=== PATIENT | male | born 1970 | race Caucasian/White ===

== ENCOUNTER 2017-11-03 04:09 | Inpatient (IN) | payer MEDICARE, MEDICAID ==
[2017-11-03] MEDS ORDERED: ONDANSETRON HCL INJ/PF 4 MG/2 ML SDV IV ONE (04:46)
[2017-11-03] MEDS ORDERED: KETOROLAC TROMETHAMINE INJ/PF 30 MG/1 ML SDV IV ONE (04:46)
[2017-11-03] MEDS ORDERED: FENTANYL CITRATE INJ/PF 100 MCG/2 ML AMPUL IV ONE (04:46)
[2017-11-03 05:06] LABS: ABSOLUTE BASOPHILS # (AUTO) 0.1 10^3/uL (0.0-0.2); ABSOLUTE EOSINOPHILS # (AUTO) 0.2 10^3/uL (0.0-0.6); ABSOLUTE LYMPHOCYTES (AUTO) 1.7 10^3/uL (0.5-4.7); ABSOLUTE MONOCYTES (AUTO) 0.6 10^3/uL (0.1-1.4); ABSOLUTE NEUT (AUTO) 4.4 10^3/uL (1.7-8.2); BASOPHILS % (AUTO) 0.8 % (0-2); EOSINOPHILS % (AUTO) 3.2 % (0-6); HEMATOCRIT 40.5 % (37.9-51.0); HEMOGLOBIN 14.4 g/dL (13.5-17.0); LYMPHOCYTES % (AUTO) 24.6 % (13-45); MEAN CORPUSCULAR HEMOGLOBIN 30.8 pg (27.0-33.4); MEAN CORPUSCULAR HGB CONC 35.5 g/dL (32.0-36.0); MEAN CORPUSCULAR VOLUME 87 fl (80-97); MONOCYTES % (AUTO) 8.3 % (3-13); PLATELET COUNT 213 10^3/uL (150-450); RED BLOOD COUNT 4.68 10^6/uL (4.35-5.55); SEGMENTED NEUTROPHILS % (AUTO) 63.1 % (42-78); TOTAL CELLS COUNTED % (AUTO) 100 %
[2017-11-03 05:19] LABS: ALANINE AMINOTRANSFERASE 37 U/L (21-72); ALKALINE PHOSPHATASE 107 U/L (38-126); ANION GAP 14 (5-19); ASPARTATE AMINO TRANSFERASE 20 U/L (17-59); BILIRUBIN,DIRECT 0.2 mg/dL (0.0-0.4); BILIRUBIN,TOTAL 0.6 mg/dL (0.2-1.3); BLOOD UREA NITROGEN 20 mg/dL (7-20); CALCIUM 9.9 mg/dL (8.4-10.2); CARBON DIOXIDE 25 mmol/L (22-30); CHLORIDE 103 mmol/L (98-107); GLUCOSE 234 mg/dL (75-110); LIPASE 120.3 U/L (23-300); POTASSIUM 4.4 mmol/L (3.6-5.0); SODIUM 141.5 mmol/L (137-145); TOTAL PROTEIN 6.9 g/dL (6.3-8.2)
--- NOTE | 2017-11-03 06:56 | ER Document Report ---
ED General - General Mode of Arrival: Ambulatory Information source: Patient TRAVEL OUTSIDE OF THE [place] IN LAST 30 DAYS: No <GONZALO MEDEIROS - Last Filed: 11/03/17 06:50> <TRINO YIN - Last Filed: 11/03/17 07:44> - General Chief Complaint: Upper Abdominal Pain Stated Complaint: CHEST PAIN Time Seen by Provider: 11/03/17 04:29 Notes: Patient is a 46-year-old male presenting to the emergency department complaining of right upper quadrant abdominal pain. Patient stated pain all of a sudden started around 2 AM. Patient states since that time he has taken Tylenol and Motrin with no relief. Patient states he is nauseous but denies vomiting, diarrhea, fever, URI symptoms, chest pain, shortness of breath, dizziness. Patient states a few months ago he was diagnosed with gallstones by primary care, told to have a cholecystectomy but patient stated he could not afford the surgery and was going to address his right upper quadrant pain with diet. Patient stated he has not had pain since that episode. Patient denies any urinary symptoms or testicular pain. Past medical history of diabetes controlled with metformin. Allergies to morphine. (GONZALO MEDEIROS) - Related Data Allergies/Adverse Reactions: morphine Adverse Reaction (Verified 11/03/17 07:22) Tachycardia Past Medical History - General Information source: Patient - Social History Smoking Status: Current Every Day Smoker Patient has suicidal ideation: No Patient has homicidal ideation: No - Past Medical History Cardiac Medical History: Reports: Hx Hypertension Denies: Hx Coronary Artery Disease, Hx Heart Attack Pulmonary Medical History: Denies: Hx Asthma, Hx Bronchitis, Hx COPD, Hx Pneumonia Neurological Medical History: Denies: Hx Cerebrovascular Accident, Hx Seizures Renal/ Medical History: Denies: Hx Peritoneal Dialysis Musculoskeletal Medical History: Denies Hx Arthritis - Immunizations Hx Diphtheria, Pertussis, Tetanus Vaccination: Yes <GONZALO MEDEIROS - Last Filed: 11/03/17 06:50> - Social History Smoking Status: Unknown if Ever Smoked Family History: Reviewed & Not Pertinent <TRINO YIN - Last Filed: 11/03/17 07:44> Review of Systems - Review of Systems Constitutional: See HPI EENT: No symptoms reported Cardiovascular: See HPI Respiratory: See HPI Gastrointestinal: See HPI Genitourinary: See HPI Male Genitourinary: See HPI Musculoskeletal: See HPI Skin: No symptoms reported Hematologic/Lymphatic: No symptoms reported Neurological/Psychological: No symptoms reported <KIMBERLEYFILIPPOGONZALO - Last Filed: 11/03/17 06:50> Physical Exam <KIMBERLEYSHAR BARKLEYALIN - Last Filed: 11/03/17 06:50> <TRINO YIN - Last Filed: 11/03/17 07:44> - Vital signs Vitals: Temp Pulse Resp BP Pulse Ox 97.2 F 74 20 158/92 H 98 11/03/17 04:14 11/03/17 04:14 11/03/17 04:14 11/03/17 04:14 11/03/17 04:14 - Notes Notes: GENERAL: Alert, interacts well. No acute distress. HEAD: Normocephalic, atraumatic. EYES: Pupils equal, round, and reactive to light. Extraocular movements intact. ENT: Oral mucosa moist, tongue midline. NECK: Full range of motion. Supple. Trachea midline. LUNGS: Clear to auscultation bilaterally, no wheezes, rales, or rhonchi. No respiratory distress. HEART: Regular rate and rhythm. No murmur ABDOMEN: Pain upon palpation right upper quadrant positive Arreola sign. Nontender all other quadrants. Non-distended. Bowel sounds present in all 4 quadrants. EXTREMITIES: Moves all 4 extremities spontaneously. No edema, normal radial and dorsalis pedis pulses bilaterally. No cyanosis. BACK: no cervical, thoracic, lumbar midline tenderness. No saddle anesthesia, normal distal neurovascular exam. NEUROLOGICAL: Alert and oriented x3. Normal speech. [cranial nerves II through XII grossly intact]. PSYCH: Normal affect, normal mood. SKIN: Warm, dry, normal turgor. No rashes or lesions noted. (GONZALO MEDEIROS) Course - Laboratory Result Diagrams: 11/03/17 04:42 11/03/17 04:42 <GONZALO MEDEIROS - Last Filed: 11/03/17 06:50> - Laboratory Result Diagrams: 11/03/17 04:42 11/03/17 04:42 <TRINO YIN - Last Filed: 11/03/17 07:44> - Re-evaluation Re-evalutation: 11/03/17 07:33 Dr. Mayer is willing to do an ERCP on this patient today or tomorrow. Even though is not on-call for the emergency room. I gave him the patient's name. I then called Dr. Corado surgeon who will admit the patient and will keep the patient n.p.o. I assumed care of the patient at the bedside. 11/03/17 07:44 Dr. Corado is here to see the patient and admit him. (TRINO YIN) - Vital Signs Vital signs: Temp Pulse Resp BP Pulse Ox 97.2 F 74 17 158/79 H 98 11/03/17 04:14 11/03/17 04:14 11/03/17 07:15 11/03/17 07:15 11/03/17 07:15 - Laboratory Laboratory results interpreted by me: 11/03/17 11/03/17 04:42 06:38 Glucose 234 H Urine Glucose (UA) >=500 H Urine Ketones TRACE H Discharge <GONZALO MEDEIROS - Last Filed: 11/03/17 06:50> - Discharge Admitting Provider: Surgicalist Unit Admitted: Surgical Floor <TRINO YIN - Last Filed: 11/03/17 07:44> - Discharge Clinical Impression: Choledocholithiasis Condition: Stable Disposition: ADMITTED INPATIENT Referrals: KIRSTIN ATKINSON NP [Primary Care Provider] - Follow up as needed
[2017-11-03 07:04] LABS: APPEARANCE,URINE CLEAR; BILIRUBIN,URINE NEGATIVE (NEGATIVE); COLOR,URINE YELLOW; GLUCOSE, URINE >=500 mg/dL (NEGATIVE); KETONES,URINE TRACE mg/dL (NEGATIVE); LEUKOCYTE ESTERASE,URINE NEGATIVE (NEGATIVE); NITRITE,URINE NEGATIVE (NEGATIVE); PROTEIN,URINE NEGATIVE (NEGATIVE); UROBILINOGEN,URINE NEGATIVE mg/dL (<2.0)
[2017-11-03] MEDS ORDERED: NORMAL SALINE 1000 ML 1,000 ML IV ONE ×2 (07:09→07:32)
--- NOTE | 2017-11-03 07:14 | RADIOLOGY REPORT (SQ) ---
EXAM DESCRIPTION: US ABDOMEN LIMITED COMPLETED DATE/TME: 11/03/2017 04:45 CLINICAL HISTORY: ruq pain COMPARISON: None. TECHNIQUE: Real-time sonographic images of the right upper abdomen were obtained using a curved multihertz transducer. FINDINGS: Pancreas: The visualized portions of the pancreas are unremarkable. Vascular: The visualized portions of the aorta and IVC are unremarkable. Liver: The liver has normal contour and increased echogenicity. Hepatopedal flow in the portal vein. Findings confirmed with color and spectral Doppler imaging. The common bile duct measures 0.7 cm. Echogenic structures in the common bile duct. Gallbladder: Echogenic structures with posterior shadowing in the gallbladder lumen compatible with gallstones. Normal gallbladder wall thickness. No pericholecystic fluid identified. Right Kidney: The right kidney measures 12.5 cm in length. No hydronephrosis, solid renal mass, or shadowing calculi. IMPRESSION: 1. There is mild dilatation of the common bile duct with possible choledocholithiasis. Correlation with MRCP could provide additional characterization. 2. Cholelithiasis without other definite ultrasound evidence of acute cholecystitis. 3. Hepatic steatosis.
--- NOTE | 2017-11-03 07:25 | EKG REPORT ---
SEVERITY:- NORMAL ECG - SINUS RHYTHM : Confirmed by: Eriberto Peters MD 03-Nov-2017 07:24:43
--- NOTE | 2017-11-03 08:06 | PDOC H&P ---
History of Present Illness Admission Date/PCP: KIRSTIN ATKINSON NP Patient complains of: Right upper quadrant pain History of Present Illness: TEJ CRISOSTOMO is a 46 year old male with a one-day history of right upper quadrant pain that is sharp, stabbing, and unrelenting. The patient's pain is severe, 9 out of 10. His pain radiates to the right back and shoulder. The patient has experienced nausea, but no vomiting. Patient does have malaise and anorexia. The patient denies blurry vision, orthostasis, dizziness, melena, hematochezia, shortness of breath, fevers, chills. Nothing makes his pain better or worse. Past Medical History Cardiac Medical History: Reports: Hypertension Denies: Coronary Artery Disease, Myocardial Infarction Pulmonary Medical History: Denies: Asthma, Bronchitis, Chronic Obstructive Pulmonary Disease (COPD), Pneumonia Neurological Medical History: Denies: Seizures Endocrine Medical History: Reports: Diabetes Mellitus Type 2 Musculoskeltal Medical History: Denies: Arthritis Hematology: Denies: Anemia Past Surgical History Past Surgical History: Reports: Other - Back surgery (disc replacement) Social History Smoking Status: Current Every Day Smoker Frequency of Alcohol Use: Occasional Hx Recreational Drug Use: No Hx Prescription Drug Abuse: No Family History Family History: Reviewed & Not Pertinent Parental Family History Reviewed: Yes Children Family History Reviewed: Yes Sibling(s) Family History Reviewed.: Yes Medication/Allergy Allergies/Adverse Reactions: morphine Adverse Reaction (Verified 11/03/17 07:22) Tachycardia Review of Systems Constitutional: PRESENT: anorexia. ABSENT: chills, fatigue, fever(s), headache( s) Eyes: ABSENT: visual disturbances Ears: ABSENT: hearing changes Nose, Mouth, and Throat: ABSENT: sore throat Cardiovascular: ABSENT: dyspnea on exertion, palpitations Respiratory: ABSENT: cough, dyspnea Gastrointestinal: PRESENT: abdominal pain, nausea. ABSENT: vomiting Genitourinary: ABSENT: dysuria Musculoskeletal: PRESENT: back pain - Chronic Integumentary: ABSENT: pruritus, rash Neurological: ABSENT: abnormal gait, abnormal speech, confusion, convulsions, dizziness, memory loss Psychiatric: ABSENT: anxiety, depression Endocrine: ABSENT: cold intolerance, heat intolerance Hematologic/Lymphatic: ABSENT: easy bleeding, easy bruising Physical Exam Vital Signs: Temp Pulse Resp BP Pulse Ox 97.2 F 74 17 158/79 H 98 11/03/17 04:14 11/03/17 04:14 11/03/17 07:15 11/03/17 07:15 11/03/17 07:15 Intake & Output 11/02/17 11/03/17 11/04/17 06:59 06:59 06:59 Weight 98.6 kg General appearance: PRESENT: no acute distress Head exam: PRESENT: atraumatic, normocephalic Eye exam: PRESENT: EOMI, PERRLA. ABSENT: scleral icterus Mouth exam: PRESENT: moist, neck supple Teeth exam: ABSENT: poor dentation Neck exam: ABSENT: lymphadenopathy, meningismus, tenderness, thyromegaly, tracheal deviation Respiratory exam: PRESENT: unlabored. ABSENT: accessory muscle use, chest wall tenderness, rales, tachypnea, wheezes Cardiovascular exam: PRESENT: RRR Pulses: PRESENT: normal radial pulses Vascular exam: PRESENT: normal capillary refill. ABSENT: pallor GI/Abdominal exam: PRESENT: soft, tenderness - Right upper quadrant/ epigastrium. ABSENT: distended Rectal exam: PRESENT: deferred Extremities exam: ABSENT: clubbing, pedal edema Musculoskeletal exam: PRESENT: normal inspection. ABSENT: deformity Neurological exam: PRESENT: alert, awake, oriented to person, oriented to place , oriented to time, oriented to situation, CN II-XII grossly intact. ABSENT: motor sensory deficit Psychiatric exam: ABSENT: agitated, anxious, depressed Focused psych exam: ABSENT: delusional Skin exam: ABSENT: cyanosis, erythema, jaundice Results Laboratory Results: 11/03/17 04:42 11/03/17 04:42 11/03/17 11/03/17 11/03/17 04:42 04:42 06:38 WBC 7.0 RBC 4.68 Hgb 14.4 Hct 40.5 MCV 87 MCH 30.8 MCHC 35.5 RDW 13.0 Plt Count 213 Seg Neutrophils % 63.1 Lymphocytes % 24.6 Monocytes % 8.3 Eosinophils % 3.2 Basophils % 0.8 Absolute Neutrophils 4.4 Absolute Lymphocytes 1.7 Absolute Monocytes 0.6 Absolute Eosinophils 0.2 Absolute Basophils 0.1 Sodium 141.5 Potassium 4.4 Chloride 103 Carbon Dioxide 25 Anion Gap 14 BUN 20 Creatinine 0.73 Est GFR ( Amer) > 60 Est GFR (Non-Af Amer) > 60 Glucose 234 H Calcium 9.9 Total Bilirubin 0.6 AST 20 ALT 37 Alkaline Phosphatase 107 Total Protein 6.9 Albumin 4.0 Lipase 120.3 Urine Color YELLOW Urine Appearance CLEAR Urine pH 5.0 Ur Specific [place] 1.030 Urine Protein NEGATIVE Urine Glucose (UA) >=500 H Urine Ketones TRACE H Urine Blood NEGATIVE Urine Nitrite NEGATIVE Ur Leukocyte Esterase NEGATIVE Urine WBC (Auto) 1 Urine RBC (Auto) 1 Impressions: Abdomen Ultrasound 11/03/17 04:45 IMPRESSION: 1. There is mild dilatation of the common bile duct with possible choledocholithiasis. Correlation with MRCP could provide additional characterization. 2. Cholelithiasis without other definite ultrasound evidence of acute cholecystitis. 3. Hepatic steatosis. Status: Imported from PACS Assessment & Plan - Diagnosis (1) Choledocholithiasis Is this a current diagnosis for this admission?: Yes - Plan Summary Plan Summary: This is a 46-year-old male with choledocholithiasis found on ultrasound. The patient has right upper quadrant pain and nausea. The patient will require GI evaluation for his choledocholithiasis. He will require cholecystectomy once his common bile duct is clear. Plan for admission and intravenous antibiotics. Liver enzymes normal at present. Will consult Dr. Mayer for possible ERCP.
[2017-11-03] MEDS ORDERED: HYDROMORPHONE HCL INJ/PF 2 MG/ML AMPULE IV PRN (08:10)
[2017-11-03] MEDS: POTASSI CL 20 MEQ/1/2NS 1L 20 MEQ/1,000 ML RTUINJ IV PRN ×2 (09:11→22:45)
[2017-11-03] MEDS ORDERED: SUCCINYLCHOLINE CHLORIDE INJ 200 MG/10 ML VIAL ONE (11:26)
[2017-11-03] MEDS: PIPERACILLIN SODIUM/TAZOBACTAM 3.375 GM in NORMAL SALINE 100 ML IV SCH ×2 (11:55→20:13)
[2017-11-03] MEDS: HYDROMORPHONE HCL INJ/PF 2 MG/ML AMPULE IV PRN ×3 (12:53→20:14)
[2017-11-03] MEDS ORDERED: FENTANYL CITRATE INJ/PF 100 MCG/2 ML AMPUL ONE (15:47)
[2017-11-03] MEDS ORDERED: ONDANSETRON HCL INJ/PF 4 MG/2 ML SDV ONE (15:48)
[2017-11-03] MEDS ORDERED: PROPOFOL INJ 200 MG/20 ML VIAL IV ONE (15:48)
[2017-11-03] MEDS ORDERED: MIDAZOLAM 2 MG/2 ML INJ ONE (15:48)
[2017-11-03] MEDS ORDERED: DEXAMETHASONE SOD PHOSPHATE INJ 4 MG/1 ML VIAL ONE (17:03)
[2017-11-03] MEDS ORDERED: EPINEPHRINE INJ 1 MG/10 ML DISP.SYRIN ONE (17:18)
[2017-11-03] MEDS ORDERED: FENTANYL CITRATE INJ/PF 100 MCG/2 ML AMPUL IV PRN ×3 (19:00)
[2017-11-03] MEDS ORDERED: DIPHENHYDRAMINE HCL 50 MG/ML VIAL IV PRN (19:00)
[2017-11-03] MEDS ORDERED: PROMETHAZINE HCL INJ 25 MG/1 ML VIAL IV PRN ×2 (19:00)
[2017-11-03] MEDS ORDERED: ONDANSETRON HCL INJ/PF 4 MG/2 ML SDV IV PRN (19:00)
[2017-11-03] MEDS ORDERED: MEPERIDINE HCL/PF INJ 25 MG/1 ML DISP.SYRIN IV PRN (19:00)
--- NOTE | 2017-11-03 19:18 | PDOC CONSULTATION ---
Consultation Consult Date: 11/03/17 History of Present Illness Admission Date/PCP: 11/03/17 07:59 KIRSTIN ATKINSON NP History of Present Illness: TEJ CRISOSTOMO is a 46 year old male patient was admitted early on today with recurrent right upper quadrant pain. He has had 4 episodes of similar pain since March of this year but his last episode before now was 3 months ago. He tries to make himself vomit but he is not sure if this helps. The current episode started at 1:30 during the night and continue for many hours but it is better currently. He had an ultrasound today that showed gallstones with no evidence of cholecystitis. There is said to be mild dilation of the common bile duct with possible choledocholithiasis. His LFTs and lipase were normal Past Medical History Cardiac Medical History: Reports: Hypertension Denies: Coronary Artery Disease, Myocardial Infarction Pulmonary Medical History: Denies: Asthma, Bronchitis, Chronic Obstructive Pulmonary Disease (COPD), Pneumonia Neurological Medical History: Denies: Seizures Endocrine Medical History: Reports: Diabetes Mellitus Type 2 Musculoskeltal Medical History: Denies: Arthritis Hematology: Denies: Anemia Past Surgical History Past Surgical History: Reports: Other - Back surgery (disc replacement) Social History Smoking Status: Never Smoker Frequency of Alcohol Use: Occasional Hx Recreational Drug Use: No Drugs: None Hx Prescription Drug Abuse: No - Advance Directive Resuscitation Status: Full Code Family History Family History: Reviewed & Not Pertinent Parental Family History Reviewed: No Children Family History Reviewed: NA Sibling(s) Family History Reviewed.: NA Medication/Allergy Allergies/Adverse Reactions: morphine Adverse Reaction (Verified 11/03/17 07:22) Tachycardia Review of Systems All systems: reviewed and no additional remarkable complaints except as stated Physical Exam Vital Signs: Temp Pulse Resp BP Pulse Ox 97.6 F 50 L 18 144/74 H 99 11/03/17 15:29 11/03/17 15:29 11/03/17 15:29 11/03/17 15:29 11/03/17 15:29 Intake & Output 11/02/17 11/03/17 11/04/17 06:59 06:59 06:59 Intake Total 2100 Output Total 1235 Balance 865 Exam: General: Patient is alert and looks well. HEENT: There is no pallor or jaundice. PERRLA. Oropharynx normal Respiratory: No chest deformity. No respiratory distress. Chest wall palpitation was unremarkable. Breath sounds were normal Cardiovascular: Heart sounds 1 and 2 normal with no murmurs. Abdominal: Not distended. Soft and nontender. Liver and spleen not palpable. No ascites demonstrated. Bowel sounds active. Rectal examination was deferred. Extremities: No edema Neurological: Alert and oriented x4. Grossly nonfocal. Normal speech Skin: No significant rash Psychological: Normal affect Results Impressions: Abdomen Ultrasound 11/03/17 04:45 IMPRESSION: 1. There is mild dilatation of the common bile duct with possible choledocholithiasis. Correlation with MRCP could provide additional characterization. 2. Cholelithiasis without other definite ultrasound evidence of acute cholecystitis. 3. Hepatic steatosis. Assessment & Plan - Diagnosis (1) Abnormal finding of biliary tract Is this a current diagnosis for this admission?: Yes Plan: He he has had recurrent right upper quadrant pain for many months and an ultrasound that suggest choledocholithiasis. He has normal lipase and LFTs. The need for an ERCP was explained to the patient. He will be undergoing a cholecystectomy thereafter (2) Gallstones Is this a current diagnosis for this admission?: Yes (3) Right upper quadrant abdominal pain Is this a current diagnosis for this admission?: Yes
--- NOTE | 2017-11-03 19:20 | Operative Report ---
Operative Report DATE OF SURGERY: 11/03/17 Operative Report: Pre-op diagnosis: Possible choledocholithiasis on ultrasound Post-op diagnosis: 1. Common bile duct sludge 2. Antral ulcers Surgery: ERCP with sphincterotomy and balloon sludge extraction and biopsy Medications: As per anesthesia Tissue removed: Antral biopsy Procedure: After informed consent obtained from patient, the throat was sprayed with Hurricane and conscious sedation was achieved. The ERCP endoscope was then inserted into the esophagus blindly and advanced into the stomach. The duodenum was entered and the ampulla was identified. Using the triple-lumen sphincterotomy catheter the common bile duct was freely cannulated. A cholangiogram was obtained which showed possible filling defect in the distal common bile duct. The common bile duct and intrahepatic ducts did not appear dilated. A good sized sphincterotomy was then performed using the endocut mode. The catheter was removed over the guidewire before a 9-12 mm balloon catheter was inserted. The balloon was inflated to 12 mm in the proximal common bile duct and pulled down the duct. Some sludge was extracted. The duct was swept one more time. A balloon occlusion cholangiogram was normal. The pancreatic duct was intentionally not cannulated. Patient tolerated procedure well. Findings Common bile duct: This was of normal size. Small amount of sludge was extracted with the balloon. He had a small ampulla Intrahepatic ducts: Normal Pancreatic duct: Not cannulated Stomach: He had 2 small ulcers with some erythema in the gastric antrum. Biopsy was taken Plan: Proceed with cholecystectomy. Use a PPI for 2 months OPERATION: .
[2017-11-04] MEDS: PIPERACILLIN SODIUM/TAZOBACTAM 3.375 GM in NORMAL SALINE 100 ML IV SCH ×5 (00:23→23:30)
[2017-11-04] MEDS: HYDROMORPHONE HCL INJ/PF 2 MG/ML AMPULE IV PRN ×10 (00:42→23:25)
[2017-11-04] MEDS: ONDANSETRON HCL INJ/PF 4 MG/2 ML SDV IV PRN ×5 (00:42→18:34)
[2017-11-04 05:27] LABS: ABSOLUTE LYMPHOCYTES (AUTO) 0.4 10^3/uL (0.5-4.7); ABSOLUTE MONOCYTES (AUTO) 0.3 10^3/uL (0.1-1.4); ABSOLUTE NEUT (AUTO) 7.7 10^3/uL (1.7-8.2); BASOPHILS % (AUTO) 0.3 % (0-2); EOSINOPHILS % (AUTO) 0.3 % (0-6); HEMATOCRIT 39.6 % (37.9-51.0); HEMOGLOBIN 14.1 g/dL (13.5-17.0); LYMPHOCYTES % (AUTO) 5.2 % (13-45); MEAN CORPUSCULAR HEMOGLOBIN 30.7 pg (27.0-33.4); MEAN CORPUSCULAR HGB CONC 35.5 g/dL (32.0-36.0); MEAN CORPUSCULAR VOLUME 86 fl (80-97); MONOCYTES % (AUTO) 3.3 % (3-13); PLATELET COUNT 172 10^3/uL (150-450); RED BLOOD COUNT 4.59 10^6/uL (4.35-5.55); RED CELL DISTRIBUTION WIDTH 12.8 % (11.5-14.0); SEGMENTED NEUTROPHILS % (AUTO) 90.9 % (42-78); TOTAL CELLS COUNTED % (AUTO) 100 %; WHITE BLOOD COUNT 8.5 10^3/uL (4.0-10.5)
[2017-11-04 05:39] LABS: ALANINE AMINOTRANSFERASE 201 U/L (21-72); ALBUMIN 3.8 g/dL (3.5-5.0); ALKALINE PHOSPHATASE 103 U/L (38-126); ANION GAP 9 (5-19); ASPARTATE AMINO TRANSFERASE 241 U/L (17-59); BILIRUBIN,DIRECT 1.4 mg/dL (0.0-0.4); BILIRUBIN,TOTAL 2.3 mg/dL (0.2-1.3); BLOOD UREA NITROGEN 14 mg/dL (7-20); CALCIUM 8.9 mg/dL (8.4-10.2); CARBON DIOXIDE 24 mmol/L (22-30); CHLORIDE 103 mmol/L (98-107); GLUCOSE 230 mg/dL (75-110); POTASSIUM 4.5 mmol/L (3.6-5.0); SODIUM 136.2 mmol/L (137-145); TOTAL PROTEIN 6.7 g/dL (6.3-8.2)
[2017-11-04 06:40] LABS: LIPASE 12776.4 U/L (23-300)
[2017-11-04] MEDS ORDERED: PROMETHAZINE HCL INJ 25 MG/1 ML VIAL ONE (07:30)
[2017-11-04] MEDS: PROMETHAZINE HCL INJ 25 MG/1 ML VIAL IV PRN ×2 (07:30→14:42)
--- NOTE | 2017-11-04 08:34 | RADIOLOGY REPORT (SQ) ---
EXAM DESCRIPTION: NO CHG FLUORO; ENDO CATH/BILIARY DUCT COMPLETED DATE/TIME: 11/03/2017 7:35 pm REASON FOR STUDY: ERCP COMPARISON: None. FLUOROSCOPY TIME: 2.5 minutes 6 images saved to PACS. TECHNIQUE: Intra-operative images acquired during surgical procedure to evaluate progress. NUMBER OF IMAGES: 6 LIMITATIONS: None. FINDINGS: Selected images from ERCP performed in the operating room. Endoscope tip overlies 2nd por tion of duodenum. There is opacification of the bile ducts. No fixed filling defect or extravasatio n. IMPRESSION: IMAGE(S) OBTAINED DURING PROCEDURE. COMMENT: Quality ID [id number]: Final reports for procedures using fluoroscopy that document radiation exp osure indices, or exposure time and number of fluorographic images (if radiation exposure indices are not available) Please consult full operative report of the attending physician for description of the procedure. TECHNICAL DOCUMENTATION: JOB ID: [id number] [employer]- All Rights Reserved Reading location - IP/workstation name: [facility]
--- NOTE | 2017-11-04 08:34 | RADIOLOGY REPORT (SQ) ---
EXAM DESCRIPTION: NO CHG FLUORO; ENDO CATH/BILIARY DUCT COMPLETED DATE/TIME: 11/03/2017 7:35 pm REASON FOR STUDY: ERCP COMPARISON: None. FLUOROSCOPY TIME: 2.5 minutes 6 images saved to PACS. TECHNIQUE: Intra-operative images acquired during surgical procedure to evaluate progress. NUMBER OF IMAGES: 6 LIMITATIONS: None. FINDINGS: Selected images from ERCP performed in the operating room. Endoscope tip overlies 2nd por tion of duodenum. There is opacification of the bile ducts. No fixed filling defect or extravasatio n. IMPRESSION: IMAGE(S) OBTAINED DURING PROCEDURE. COMMENT: Quality ID [id number]: Final reports for procedures using fluoroscopy that document radiation exp osure indices, or exposure time and number of fluorographic images (if radiation exposure indices are not available) Please consult full operative report of the attending physician for description of the procedure. TECHNICAL DOCUMENTATION: JOB ID: [id number] [employer]- All Rights Reserved Reading location - IP/workstation name: [facility]
[2017-11-04] MEDS: LANSOPRAZOLE 30 MG TAB.RAP.DR PO SCH (09:07)
[2017-11-04] MEDS: NORMAL SALINE 1000 ML 1,000 ML IV PRN ×3 (09:30→23:24)
--- NOTE | 2017-11-04 11:21 | PDOC PROGRESS REPORT ---
Subjective Progress Note for:: 11/04/17 Subjective:: Epigastric pains with nausea/vomiting Reason For Visit: COMMON BILE DUCT CALCULUS Physical Exam Vital Signs: Temp Pulse Resp BP Pulse Ox 97.8 F 82 22 H 180/69 H 99 11/04/17 07:34 11/04/17 07:34 11/04/17 07:34 11/04/17 07:34 11/04/17 07:34 Intake & Output 11/03/17 11/04/17 11/05/17 06:59 06:59 06:59 Intake Total 4200 100 Output Total 1235 Balance 2965 100 Weight 98.6 kg General appearance: PRESENT: severe distress GI/Abdominal exam: PRESENT: soft, tenderness - epigastric area Results Laboratory Results: 11/04/17 04:36 11/04/17 04:36 11/04/17 11/04/17 04:36 04:36 WBC 8.5 RBC 4.59 Hgb 14.1 Hct 39.6 MCV 86 MCH 30.7 MCHC 35.5 RDW 12.8 Plt Count 172 Seg Neutrophils % 90.9 H Lymphocytes % 5.2 L Monocytes % 3.3 Eosinophils % 0.3 Basophils % 0.3 Absolute Neutrophils 7.7 Absolute Lymphocytes 0.4 L Absolute Monocytes 0.3 Absolute Eosinophils 0.0 Absolute Basophils 0.0 Sodium 136.2 L Potassium 4.5 Chloride 103 Carbon Dioxide 24 Anion Gap 9 BUN 14 Creatinine 0.63 Est GFR ( Amer) > 60 Est GFR (Non-Af Amer) > 60 Glucose 230 H Calcium 8.9 Total Bilirubin 2.3 H AST 241 H ALT 201 H Alkaline Phosphatase 103 Total Protein 6.7 Albumin 3.8 Lipase 40931.4 H Impressions: Catheter Placement 11/03/17 00:00 IMPRESSION: IMAGE(S) OBTAINED DURING PROCEDURE. Fluoroscopy 11/03/17 00:00 IMPRESSION: IMAGE(S) OBTAINED DURING PROCEDURE. Abdomen Ultrasound 11/03/17 04:45 IMPRESSION: 1. There is mild dilatation of the common bile duct with possible choledocholithiasis. Correlation with MRCP could provide additional characterization. 2. Cholelithiasis without other definite ultrasound evidence of acute cholecystitis. 3. Hepatic steatosis. Assessment & Plan - Diagnosis (1) post ERCP pancreatitis Is this a current diagnosis for this admission?: Yes - Time Time Spent with patient: 15-24 minutes - Inpatient Certification Medical Necessity: Need For IV Fluids, Need for Pain Control, Need for IV Antibiotics, Need for Surgery - Plan Summary Plan Summary: Hold Perico gilbert today Monitor labs serially Will inform Dr Mayer of lab abnormalities Keep NPO and Hydrate Continue IV antibiotics
[2017-11-04] MEDS ORDERED: NORMAL SALINE 1000 ML 1,000 ML IV ONE (14:00)
[2017-11-05] MEDS: HYDROMORPHONE HCL INJ/PF 2 MG/ML AMPULE IV PRN ×8 (07:30→21:57)
[2017-11-05] MEDS: ONDANSETRON HCL INJ/PF 4 MG/2 ML SDV IV PRN ×2 (08:00→21:59)
[2017-11-05] MEDS: PROMETHAZINE HCL INJ 25 MG/1 ML VIAL IV PRN ×2 (08:25→15:12)
[2017-11-05 09:21] LABS: ABSOLUTE EOSINOPHILS # (AUTO) 0.1 10^3/uL (0.0-0.6); ABSOLUTE LYMPHOCYTES (AUTO) 1.3 10^3/uL (0.5-4.7); ABSOLUTE MONOCYTES (AUTO) 0.5 10^3/uL (0.1-1.4); ABSOLUTE NEUT (AUTO) 6.5 10^3/uL (1.7-8.2); BASOPHILS % (AUTO) 0.3 % (0-2); EOSINOPHILS % (AUTO) 0.8 % (0-6); HEMATOCRIT 41.2 % (37.9-51.0); HEMOGLOBIN 14.4 g/dL (13.5-17.0); MEAN CORPUSCULAR HEMOGLOBIN 30.4 pg (27.0-33.4); MEAN CORPUSCULAR HGB CONC 35.1 g/dL (32.0-36.0); MEAN CORPUSCULAR VOLUME 87 fl (80-97); MONOCYTES % (AUTO) 6.5 % (3-13); PLATELET COUNT 180 10^3/uL (150-450); RED BLOOD COUNT 4.75 10^6/uL (4.35-5.55); RED CELL DISTRIBUTION WIDTH 12.7 % (11.5-14.0); SEGMENTED NEUTROPHILS % (AUTO) 77.4 % (42-78); TOTAL CELLS COUNTED % (AUTO) 100 %; WHITE BLOOD COUNT 8.3 10^3/uL (4.0-10.5)
[2017-11-05 09:29] LABS: ALANINE AMINOTRANSFERASE 109 U/L (21-72); ALBUMIN 3.4 g/dL (3.5-5.0); ALKALINE PHOSPHATASE 81 U/L (38-126); ANION GAP 9 (5-19); ASPARTATE AMINO TRANSFERASE 45 U/L (17-59); BILIRUBIN,DIRECT 0.4 mg/dL (0.0-0.4); BILIRUBIN,TOTAL 1.1 mg/dL (0.2-1.3); BLOOD UREA NITROGEN 10 mg/dL (7-20); CALCIUM 8.6 mg/dL (8.4-10.2); CARBON DIOXIDE 26 mmol/L (22-30); CHLORIDE 106 mmol/L (98-107); GLUCOSE 120 mg/dL (75-110); POTASSIUM 3.8 mmol/L (3.6-5.0); SODIUM 140.7 mmol/L (137-145); TOTAL PROTEIN 6.2 g/dL (6.3-8.2)
[2017-11-05] MEDS: PIPERACILLIN SODIUM/TAZOBACTAM 3.375 GM in NORMAL SALINE 100 ML IV SCH ×4 (11:14→17:55)
[2017-11-05] MEDS: NORMAL SALINE 1000 ML 1,000 ML IV PRN ×2 (11:14→17:57)
[2017-11-05] MEDS: LANSOPRAZOLE 30 MG TAB.RAP.DR PO SCH (11:15)
[2017-11-06] MEDS: PIPERACILLIN SODIUM/TAZOBACTAM 3.375 GM in NORMAL SALINE 100 ML IV SCH ×5 (00:27→23:45)
[2017-11-06] MEDS: HYDROMORPHONE HCL INJ/PF 2 MG/ML AMPULE IV PRN ×3 (02:41→21:09)
[2017-11-06] MEDS: NORMAL SALINE 1000 ML 1,000 ML IV PRN ×2 (02:42→10:46)
[2017-11-06 05:37] LABS: ALANINE AMINOTRANSFERASE 73 U/L (21-72); ALBUMIN 3.5 g/dL (3.5-5.0); ALKALINE PHOSPHATASE 75 U/L (38-126); ASPARTATE AMINO TRANSFERASE 22 U/L (17-59); BILIRUBIN,DIRECT 0.4 mg/dL (0.0-0.4); BILIRUBIN,TOTAL 1.2 mg/dL (0.2-1.3); LIPASE 263.7 U/L (23-300)
[2017-11-06] MEDS: LANSOPRAZOLE 30 MG TAB.RAP.DR PO SCH ×2 (08:25→08:27)
[2017-11-06] MEDS ORDERED: BUPIVACAINE HCL 0.25% /EPINEPHRINE INJ/PF 30 ML SDV ONE (13:00)
[2017-11-06] MEDS ORDERED: HYDROMORPHONE HCL INJ/PF 2 MG/ML AMPULE ONE (13:07)
[2017-11-06] MEDS ORDERED: FENTANYL CITRATE INJ/PF 250 MCG/5 ML AMPULE ONE (13:07)
[2017-11-06] MEDS ORDERED: ACETAMINOPHEN 1,000 MG/100 ML RTUPB IV ONE (13:08)
[2017-11-06] MEDS ORDERED: PROPOFOL INJ 200 MG/20 ML VIAL IV ONE (13:08)
[2017-11-06] MEDS ORDERED: MIDAZOLAM 2 MG/2 ML INJ ONE (13:08)
[2017-11-06] MEDS ORDERED: MEPERIDINE HCL/PF INJ 25 MG/1 ML DISP.SYRIN IV PRN (13:37)
[2017-11-06] MEDS ORDERED: ONDANSETRON HCL INJ/PF 4 MG/2 ML SDV IV PRN (13:37)
[2017-11-06] MEDS ORDERED: FENTANYL CITRATE INJ/PF 100 MCG/2 ML AMPUL IV PRN ×3 (13:37)
[2017-11-06] MEDS ORDERED: PROMETHAZINE HCL INJ 25 MG/1 ML VIAL IV PRN (13:37)
[2017-11-06] MEDS ORDERED: DIPHENHYDRAMINE HCL 50 MG/ML VIAL IV PRN (13:37)
[2017-11-06] MEDS ORDERED: DEXAMETHASONE SOD PHOSPHATE INJ 4 MG/1 ML VIAL ONE (14:48)
[2017-11-06] MEDS ORDERED: ROCURONIUM BROMIDE INJ 50 MG/5 ML VIAL IV ONE (14:48)
[2017-11-06] MEDS ORDERED: SUCCINYLCHOLINE CHLORIDE INJ 200 MG/10 ML VIAL ONE (14:48)
[2017-11-06] MEDS ORDERED: GLYCOPYRROLATE 1 MG/5 ML SYRINGE ONE (14:48)
[2017-11-06] MEDS ORDERED: ONDANSETRON HCL INJ/PF 4 MG/2 ML SDV ONE (14:48)
[2017-11-06] MEDS ORDERED: NORMAL SALINE 1000 ML 1,000 ML IV PRN (15:47)
--- NOTE | 2017-11-06 19:30 | OPERATIVE REPORT E ---
Operative Report NAME: TEJ CRISOSTOMO : 1970 AGE: 46Y DATE OF SURGERY: 11/06/2017 ROOM: 313 PREOPERATIVE DIAGNOSIS: COMMON BILE DUCT STONES WITH POST ERCP PANCREATITIS. POSTOPERATIVE DIAGNOSIS: COMMON BILE DUCT STONES WITH POST ERCP PANCREATITIS. OPERATION: Laparoscopic cholecystectomy. SURGEON: SEDRICK CHANDLER M.D. ANESTHESIA: General. INDICATIONS: This is a 46-year-old male who came in with abdominal pain, with stones in the common bile duct on ultrasound. He was admitted on 11/03/2017. On 11/04/2017, underwent ERCP by Dr. Mayer. Postoperatively, however, developed more severe epigastric pains with elevated lipase. All his enzymes gradually decreased and his pains also decreased. Today, he underwent laparoscopic cholecystectomy. PROCEDURE: Patient was placed in supine position and the abdomen prepped and draped in the usual sterile fashion. Appropriate timeout was then called. Next, an infraumbilical incision was made and a Norm trocar inserted through the divided fascia, and CO2 insufflated to a pressure of 50 mmHg through the trocar. Three other trocars were placed, a 12-mm in the subxiphoid and two 5-mm in the right upper quadrant, under direct vision. Gallbladder was then identified and subsequently grasped. Some adhesions were bluntly lysed and also use of cautery. The cystic duct was then identified and noted to be somewhat dilated. Cystic artery also identified. After angle of safety was noted, the cystic duct was then clipped with Hemoclips. However, the clips were not long enough to completely clip the duct. Because of this, another clip was placed further, close to the gallbladder, and subsequently divided between this clip and the rest of the proximal clips. The cystic duct was then completely incised. At this time, a PDS loop was then tied around the cystic duct and a second PDS loop was then tied over. Next, the cystic artery was then clipped with Hemoclips and then divided with use of scissors in between the clips The gallbladder was partially opened and extruded a couple of stones that were then retrieved with stone graspers. Gallbladder was then taken off the liver bed with the use of right angle cautery. The gallbladder was then completely removed off the liver bed. It was then placed in an Endo bag and pulled out through the umbilical port. Examination of the gallbladder bed area was then further performed and noted to have no evidence of active bleeding. A couple of stones were then identified and they were then retrieved. The area was further irrigated and no further bleeding noted. Following this, the trocars were removed and CO2 allowed to come out through the trocar sites. The infraumbilical fascial defect was then closed with a [id number] suture using 0 Vicryl, and all skin incisions closed with running subcuticular 4-0 Vicryl undyed. Marcaine was injected in the fascial area, as well as the subcutaneous area. Also, about 10 mL of Marcaine were injected around the area of the liver bed prior to removal of all the trocar sites. Patient tolerated procedure well. Needle, instrument and sponge counts were all correct. Estimated blood loss about 15 mL. Patient tolerated procedure well and brought to the recovery room in satisfactory condition. DICTATING PHYSICIAN: SEDRICK CHANDLER M.D. [id number] PHY#: [id number] ID: [id number] JOB#: [id number] ACCT: [id number] cc:SEDRICK CHANDLER M.D. > MTDD
[2017-11-07] MEDS: HYDROMORPHONE HCL INJ/PF 2 MG/ML AMPULE IV PRN ×4 (04:20→14:53)
[2017-11-07] MEDS: PIPERACILLIN SODIUM/TAZOBACTAM 3.375 GM in NORMAL SALINE 100 ML IV SCH ×3 (05:56→17:38)
[2017-11-07] MEDS: LANSOPRAZOLE 30 MG TAB.RAP.DR PO SCH (08:21)
[2017-11-07 15:32] VITALS: BP 126/67
[2017-11-07] MEDS ORDERED: OXYCODONE-ACETAMINOPHEN 5-325 MG TABLET PO PRN (18:15)
--- NOTE | 2017-11-07 20:30 | DISCHARGE SUMMARY E ---
Discharge Summary NAME: TEJ CRISOSTOMO : 1970 AGE: 46Y ADMITTED: 11/03/2017 DISCHARGED: 11/07/2017 FINAL DIAGNOSIS: Common bile duct stone with postoperative endoscopic retrograde cholangiopancreatography, pancreatitis, and elevated liver function tests. PROCEDURES: 1. ERCP, Dr. Mayer on 11/04/17. 2. Laparoscopic cholecystectomy on 11/06/17, Dr. Chandler. HOSPITAL COURSE: This is a 46-year-old male with abdominal pains and admitted on 11/03/17 for common bile duct stone. The patient underwent ERCP on 11/04/[address] Mayer, but developed elevated lipase and LFTs with increasing epigastric pains. Clinically and laboratory charl[place] all his symptoms and lab came down to practically normal on 11/06/17. He underwent laparoscopic cholecystectomy on 11/06/17, which he tolerated well. On the day of discharge the patient able to tolerate a soft diet and all the incisions are clean and dry. DISCHARGE INSTRUCTIONS: He is to be discharged on p.o. Percocet p.r.n. for pain every 4-6 hours for the next 2-3 days. Arrangements will be made for him to be followed up in the clinic in 2 weeks. Advised not to do any lifting more than 10-15 pounds for the first 1-2 weeks. DICTATING PHYSICIAN: SEDRICK CHANDLER M.D. [id number] PHY#: [id number] ID: [id number] JOB#: [id number] ACCT: [id number] cc:Rangel STACY M.D. [facility],
--- NOTE | 2018-01-26 14:15 | DISCHARGE SUMMARY E ---
Discharge Summary NAME: TEJ CRISOSTOMO : 1970 AGE: 46Y ADMITTED: 11/03/2017 DISCHARGED: 11/07/2017 ADDENDUM FINAL DIAGNOSIS: Chronic cholecystitis, cholelithiasis, common bile duct stone with postoperative endoscopic retrograde cholangiopancreatography, pancreatitis, and elevated liver function tests. PROCEDURES: 1. ERCP, Dr. Mayer, 11/04/17. 2. Laparoscopic cholecystectomy, 11/06/17, Dr. Chandler. HOSPITAL COURSE: This is a 46-year-old male with abdominal pains admitted on 11/03/17 for common bile duct stone. Patient underwent ERCP on 11/04/[address] Mayer but developed elevated lipase and LFTs with increasing epigastric pains. Clinically and laboratory charlton all his symptoms and labs came down to practically normal on 11/06/17. He underwent laparoscopic cholecystectomy on 11/06/17 which he tolerated well. The final path report on the gallbladder was chronic cholecystitis and cholelithiasis. On the day of discharge patient was able to tolerate soft diet, and all of the incisions were clean and dry. DISCHARGE INSTRUCTIONS: He is to be discharged on p.o. Percocet p.r.n. for pain every 4 to 6 hours for the next 2 to 3 days. Arrangements will be made for him to be followed up in the clinic in 2 weeks. Advised not to do any lifting more than 10 to 15 pounds for the next 1 to 2 weeks. DICTATING PHYSICIAN: SEDRICK CHANDLER M.D. [id number] PHY#: [id number] ID: [id number] JOB#: [id number] ACCT: [id number] cc:SEDRICK CHANDLER M.D. >
== END 2017-11-07 20:09 | disposition home or self-care (01) | DRG 417 ==
LOC: ER 04:09 → EH 07:59 → 3W 09:51
PROVIDERS: ATTEND Surgery
PROC: 0DB68ZX Excision of Stomach, Via Natural or Artificial Opening Endoscopic, Diagnostic (ICD-10-PCS; 2017-11-03)
PROC: 0FC98ZZ Extirpation of Matter from Common Bile Duct, Via Natural or Artificial Opening Endoscopic (ICD-10-PCS; 2017-11-03 17:30)
PROC: 0FT44ZZ Resection of Gallbladder, Percutaneous Endoscopic Approach (ICD-10-PCS; principal; 2017-11-06 12:15)
DX: K80.64 Calculus of gallbladder and bile duct with chronic cholecystitis without obstruction (principal); K85.90 Acute pancreatitis without necrosis or infection, unspecified; K25.9 Gastric ulcer, unspecified as acute or chronic, without hemorrhage or perforation; I10 Essential (primary) hypertension; E11.9 Type 2 diabetes mellitus without complications; Z88.8 Allergy status to other drugs, medicaments and biological substances; F17.200 Nicotine dependence, unspecified, uncomplicated
CPT/HCPCS: 36415; 43262; 43264; 732; 74328; 76705; 790; 80053; 80076; 81001; 82962; 83690; 85025; 88305; 88342; 93005; 93010; 94799; 96374; 96375; 99285; J0131; J0171; J0330; J1100; J1170; J1885; J2250; J2405; J2543; J2550; J2704; J3010; J3480; J3490; J7030

== ENCOUNTER → 2017-11-10 | Outpatient (CLI) | payer MEDICARE, MEDICAID ==
[2017-11-10 12:38] LABS: CALCIUM 9.6 mg/dL (8.4-10.2); GLUCOSE 146 mg/dL (75-110)
[2017-11-10 12:39] LABS: ALANINE AMINOTRANSFERASE 72 U/L (21-72); ALKALINE PHOSPHATASE 89 U/L (38-126); ANION GAP 13 (5-19); ASPARTATE AMINO TRANSFERASE 38 U/L (17-59); BLOOD UREA NITROGEN 11 mg/dL (7-20); CARBON DIOXIDE 28 mmol/L (22-30); CHLORIDE 102 mmol/L (98-107); POTASSIUM 4.3 mmol/L (3.6-5.0); SODIUM 142.7 mmol/L (137-145)
[2017-11-10 12:40] LABS: AMYLASE 58 U/L (30-110); BILIRUBIN,DIRECT 0.4 mg/dL (0.0-0.4); LIPASE 164.8 U/L (23-300); TOTAL PROTEIN 7.2 g/dL (6.3-8.2)
== END ==
LOC: OD 11:07
PROVIDERS: ATTEND Physician Assistant Surgical
DX: R11.2 Nausea with vomiting, unspecified (principal); Z90.49 Acquired absence of other specified parts of digestive tract
CPT/HCPCS: 36415; 80053; 82150; 83690

== ENCOUNTER 2018-11-11 20:45 | Emergency (ER) | payer MEDICARE, MEDICAID ==
[2018-11-11] MEDS ORDERED: DEXAMETHASONE SOD PHOS INJ 10 MG/1 ML VIAL IV ONE (21:13)
[2018-11-11] MEDS ORDERED: FAMOTIDINE INJ/PF 20 MG/2 ML SDV IV ONE (21:13)
[2018-11-11] MEDS ORDERED: DIPHENHYDRAMINE HCL 50 MG/ML VIAL IV ONE (21:13)
[2018-11-11] MEDS ORDERED: EPINEPHRINE INJ/PF 1 MG/1 ML AMPULE IM ONE (21:13)
[2018-11-11 21:32] LABS: ABSOLUTE LYMPHOCYTES (AUTO) 1.4 10^3/uL (0.5-4.7); ABSOLUTE MONOCYTES (AUTO) 0.2 10^3/uL (0.1-1.4); BASOPHILS % (AUTO) 0.1 % (0-2); EOSINOPHILS % (AUTO) 0.4 % (0-6); HEMATOCRIT 42.3 % (37.9-51.0); HEMOGLOBIN 14.7 g/dL (13.5-17.0); LYMPHOCYTES % (AUTO) 17.9 % (13-45); MEAN CORPUSCULAR HGB CONC 34.8 g/dL (32.0-36.0); MEAN CORPUSCULAR VOLUME 86 fl (80-97); MONOCYTES % (AUTO) 3.1 % (3-13); PLATELET COUNT 232 10^3/uL (150-450); RED CELL DISTRIBUTION WIDTH 13.1 % (11.5-14.0); SEGMENTED NEUTROPHILS % (AUTO) 78.5 % (42-78); TOTAL CELLS COUNTED % (AUTO) 100 %; WHITE BLOOD COUNT 7.7 10^3/uL (4.0-10.5)
[2018-11-11 21:44] LABS: INTERNATIONAL RATION (INR) 1.03; PROTHROMBIN TIME 13.5 SEC (11.4-15.4)
[2018-11-11 21:45] LABS: PARTIAL THROMBOPLASTIN TIME 27.9 SEC (23.5-35.8)
[2018-11-11 21:52] LABS: ALBUMIN 4.2 g/dL (3.5-5.0); ALKALINE PHOSPHATASE 83 U/L (38-126); ANION GAP 10 (5-19); ASPARTATE AMINO TRANSFERASE 24 U/L (17-59); BILIRUBIN,DIRECT 0.1 mg/dL (0.0-0.4); BILIRUBIN,TOTAL 0.5 mg/dL (0.2-1.3); BLOOD UREA NITROGEN 13 mg/dL (7-20); CARBON DIOXIDE 25 mmol/L (22-30); CHLORIDE 105 mmol/L (98-107); CREATINE KINASE 121 U/L (55-170); GLUCOSE 110 mg/dL (75-110); POTASSIUM 3.7 mmol/L (3.6-5.0); TOTAL PROTEIN 6.7 g/dL (6.3-8.2)
--- NOTE | 2018-11-11 21:54 | RADIOLOGY REPORT (SQ) ---
EXAM DESCRIPTION: CLINICAL HISTORY: 47 years Male, Chest tightness short of breath possible allergic COMPARISON: None. FINDINGS: Cardiomediastinal silhouette is not enlarged. No suspicious acute lung pleural bone abnormalities. IMPRESSION: No acute findings.
[2018-11-11] MEDS ORDERED: ONDANSETRON HCL INJ/PF 4 MG/2 ML SDV IV ONE (22:01)
[2018-11-11 22:05] LABS: CREATINE KINASE MB 0.82 ng/mL (<4.55)
[2018-11-11 22:07] LABS: TROPONIN I < 0.012 ng/mL
[2018-11-11 22:38] LABS: APPEARANCE,URINE SLIGHTLY-CLOUDY; BILIRUBIN,URINE NEGATIVE (NEGATIVE); COLOR,URINE YELLOW; GLUCOSE, URINE NEGATIVE (NEGATIVE); KETONES,URINE NEGATIVE (NEGATIVE); LEUKOCYTE ESTERASE,URINE NEGATIVE (NEGATIVE); NITRITE,URINE NEGATIVE (NEGATIVE); PROTEIN,URINE 30 mg/dL (NEGATIVE); URINE SPECIFIC GRAVITY 1.017; UROBILINOGEN,URINE NEGATIVE mg/dL (<2.0)
[2018-11-11 22:46] LABS: ADD MANUAL MICROSCOPIC YES
[2018-11-11 22:49] LABS: CALCIUM OXALATE CRYSTALS,UR RARE /HPF
[2018-11-11 22:50] LABS: HYALINE CASTS, URINE 0-1 /LPF
--- NOTE | 2018-11-12 00:10 | ER Document Report ---
ED General - General Chief Complaint: Allergic Reaction Stated Complaint: CHEST PAIN Time Seen by Provider: 11/11/18 21:11 Primary Care Provider: KIRSTIN ATKINSON NP [Primary Care Provider] - Follow up in 3-5 days Notes: Patient is a 47-year-old male that presents to the emergency department for chief complaint of itching, shortness of breath and lightheadedness and possible allergic reaction. Patient states that he was outside cutting grass, and started feeling itching in his left hand, he went inside to take a shower, and then started feeling lightheaded, and short of breath, felt like his throat was closing, so he decided come to the emergency department. He denies prior history of allergic reactions or anaphylaxis, is unaware that he got stung or bit by any insects or loss. He states he did feel lightheaded, did not pass out, in triage he did receive IM epinephrine, steroids, and Benadryl and he sta dorothy that he is starting to feel little bit better. He was also feeling tightness in his chest, which is since resolved after receiving epinephrine, he denies history of asthma, seasonal allergies, or other medical issues. Past Medical History: Denies chronic medical conditions Past Surgical History: Cholecystectomy Social History: Admits to smoking cigarettes, and regular alcohol use, denies illicit drug use. Family History: Reviewed and noncontributory for presenting illness Allergies: Reviewed, see documented allergy list. REVIEW OF SYSTEMS: Other than noted above, the 12 point review of systems was reviewed with the patient and were negative, all pertinent findings are included in the HPI. PHYSICAL EXAMINATION: Vital signs reviewed, nursing noted reviewed. GENERAL: Well-appearing, well-nourished and in no acute distress. HEAD: Atraumatic, normocephalic. EYES: Eyes appear normal, extraocular movements intact, sclera anicteric, conjunctiva are normal. ENT: nares patent, oropharynx clear without exudates. Moist mucous membranes. Mild uvular edema noted, no lingular edema or other angioedema noted. NECK: Normal range of motion, supple without lymphadenopathy, no stridor on exam. LUNGS: Breath sounds clear to auscultation bilaterally and equal. No wheezes rales or rhonchi. HEART: Regular rate and rhythm without murmurs ABDOMEN: Soft, nontender, normoactive bowel sounds. No rebound, guarding, or rigidity. No masses appreciated. EXTREMITIES: Nontender, good range of motion, no pitting or edema. NEUROLOGICAL: No focal neurological deficits. Moves all extremities spontaneously Motor and sensory grossly intact on exam. PSYCH: Normal mood, normal affect. SKIN: Warm, Dry, normal turgor, no rashes or lesions noted on exposed skin TRAVEL OUTSIDE OF THE [place] IN LAST 30 DAYS: No - Related Data Allergies/Adverse Reactions: morphine Adverse Reaction (Verified 01/13/18 09:21) Tachycardia Past Medical History - Social History Smoking Status: Current Every Day Smoker Chew tobacco use (# tins/day): No Frequency of alcohol use: Occasional Drug Abuse: None Family History: Reviewed & Not Pertinent Patient has suicidal ideation: No Patient has homicidal ideation: No - Past Medical History Cardiac Medical History: Reports: Hx Hypertension - NO MEDS Denies: Hx Coronary Artery Disease, Hx Heart Attack Pulmonary Medical History: Denies: Hx Asthma, Hx Bronchitis, Hx COPD, Hx Pneumonia Neurological Medical History: Denies: Hx Cerebrovascular Accident, Hx Seizures Endocrine Medical History: Reports: Hx Diabetes Mellitus Type 2 Renal/ Medical History: Denies: Hx Peritoneal Dialysis Musculoskeletal Medical History: Reports Hx Arthritis - BRUSITIS OF RIGHT HIP Past Surgical History: Reports: Other - Back surgery (disc replacement) - Immunizations Hx Diphtheria, Pertussis, Tetanus Vaccination: Yes Physical Exam - Vital signs Vitals: Temp Pulse Resp BP Pulse Ox 97.7 F 77 20 122/61 96 11/11/18 21:00 11/11/18 21:00 11/11/18 21:00 11/11/18 21:00 11/11/18 21:00 Course - Re-evaluation Re-evalutation: Patient seen and examined vital signs reviewed. Laboratory data and/or imaging were ordered as appropriate for the patient's presenting symptoms and complaint, with consideration of any critical or life threatening conditions that may be associated with their obtained history and exam as noted above. Patient was treated with IV Solu-Medrol, Pepcid, Benadryl, and IM epinephrine Results were reviewed when available and demonstrated unremarkable blood work, negative troponin, unremarkable EKG, ordered in triage. The patient was re-evaluated and was stable much improved, on repeat examinations, patient's uvular edema had resolved, he was feeling much better, asymptomatic Evaluation was most consistent with anaphylactic reaction, to unknown allergen, patient given prescription for EpiPen, and prednisone and advised follow-up. Results were discussed with the patient at this point, after careful consideration I feel that that patient can be discharged from the emergency department, the patient was educated treatments and reasons to return to the emergency department based on their presumed diagnosis as noted above, they were advised to followup with a primary care physician in 2-3 days. Patient was agreeable to plan of care. *Note is created using voice recognition software and may contain spelling, syntax or grammatical errors. Laboratory 11/11/18 11/11/18 11/11/18 21:15 21:15 21:15 WBC 7.7 RBC 4.90 Hgb 14.7 Hct 42.3 MCV 86 MCH 30.0 MCHC 34.8 RDW 13.1 Plt Count 232 Lymph % (Auto) 17.9 Titus % (Auto) 3.1 Eos % (Auto) 0.4 Baso % (Auto) 0.1 Absolute Neuts (auto) 6.0 Absolute Lymphs (auto) 1.4 Absolute Monos (auto) 0.2 Absolute Eos (auto) 0.0 Absolute Basos (auto) 0.0 Seg Neutrophils % 78.5 H PT 13.5 INR 1.03 APTT 27.9 Sodium 140.3 Potassium 3.7 Chloride 105 Carbon Dioxide 25 Anion Gap 10 BUN 13 Creatinine 0.86 Est GFR ( Amer) > 60 Est GFR (MDRD) Non-Af > 60 Glucose 110 Calcium 9.0 Total Bilirubin 0.5 Direct Bilirubin 0.1 Neonat Total Bilirubin Not Reportable Neonat Direct Bilirubin Not Reportable Neonat Indirect Bili Not Reportable AST 24 ALT 20 Alkaline Phosphatase 83 Creatine Kinase 121 CK-MB (CK-2) Troponin I Total Protein 6.7 Albumin 4.2 Lipase 96.0 Urine Color Urine Appearance Urine pH Ur Specific Wilmont Urine Protein Urine Glucose (UA) Urine Ketones Urine Blood Urine Nitrite Urine Bilirubin Urine Urobilinogen Ur Leukocyte Esterase Urine WBC Calcium Oxalate Crystal Hyaline Casts Urine Mucus Urine Ascorbic Acid 11/11/18 11/11/18 21:15 22:04 WBC RBC Hgb Hct MCV MCH MCHC RDW Plt Count Lymph % (Auto) Titus % (Auto) Eos % (Auto) Baso % (Auto) Absolute Neuts (auto) Absolute Lymphs (auto) Absolute Monos (auto) Absolute Eos (auto) Absolute Basos (auto) Seg Neutrophils % PT INR APTT Sodium Potassium Chloride Carbon Dioxide Anion Gap BUN Creatinine Est GFR ( Amer) Est GFR (MDRD) Non-Af Glucose Calcium Total Bilirubin Direct Bilirubin Neonat Total Bilirubin Neonat Direct Bilirubin Neonat Indirect Bili AST ALT Alkaline Phosphatase Creatine Kinase CK-MB (CK-2) 0.82 Troponin I < 0.012 Total Protein Albumin Lipase Urine Color YELLOW Urine Appearance SLIGHTLY-CLOUDY Urine pH 5.0 Ur Specific [place] 1.017 Urine Protein 30 H Urine Glucose (UA) NEGATIVE Urine Ketones NEGATIVE Urine Blood NEGATIVE Urine Nitrite NEGATIVE Urine Bilirubin NEGATIVE Urine Urobilinogen NEGATIVE Ur Leukocyte Esterase NEGATIVE Urine WBC 1-5 Calcium Oxalate Crystal RARE Hyaline Casts 0-1 Urine Mucus 1+ Urine Ascorbic Acid NEGATIVE Chest X-Ray 11/11/18 21:12 IMPRESSION: No acute findings. - Vital Signs Vital signs: Temp Pulse Resp BP Pulse Ox 97.9 F 77 16 106/63 94 11/12/18 00:00 11/11/18 21:00 11/12/18 00:01 11/12/18 00:00 11/12/18 00:01 - Laboratory Result Diagrams: 11/11/18 21:15 11/11/18 21:15 Laboratory results interpreted by me: 11/11/18 11/11/18 21:15 22:04 Seg Neutrophils % 78.5 H Urine Protein 30 H - EKG Interpretation by Me Additional EKG results interpreted by me: EKG demonstrates sinus rhythm with a ventricular rate of 72 bpm, normal axis, normal intervals, no evidence of acute ischemia in this EKG. Critical Care Note - Critical Care Note Total time excluding time spent on procedures (mins): 36 Comments: Critical care time 36 minutes exclusive from separate billable procedures for a patient requiring complex medical decision making, and high potential for clinic al deterioration. In a patient with acute anaphylactic reaction, requiring IM epinephrine and close monitoring and repeat evaluations. Time spent obtaining history from patient or surrogate, discussions with consultants, development of treatment plan with patient or surrogate, evaluation of patient's response to treatment, examination of patient, ordering and performing treatments and interventions, ordering and review of laboratory studies, re-evaluation of patient's condition, ordering and review of radiographic studies and review of old charts Discharge - Discharge Clinical Impression: Anaphylactic reaction Qualifiers: Encounter type: initial encounter Qualified Code(s): T78.2XXA - Anaphylactic shock, unspecified, initial encounter Condition: Stable Disposition: HOME, SELF-CARE Instructions: Acute Allergic Reaction ([facility]) Additional Instructions: Please monitor for any worsening symptoms such as tongue swelling or throat itching or difficulty breathing, if these occur, do not hesitate to return to the emergency department immediately, you have been prescribed an EpiPen, if you feel you are having the symptoms, and you have the EpiPen at home, be sure to use it, and then call EMS or 911 immediately or come to the emergency department immediately. Please take the prescribed steroid, for the next 4 days, to further pulido off any allergic reaction symptoms. Prescriptions: Epinephrine [Epipen] 0.3 mg IJ PRN PRN #1 auto.injct PRN Reason: severe allergic reaction Prednisone 40 mg PO DAILY #16 tablet Referrals: KIRSTIN ATKINSON KNOTTING MACHINE OPERATOR [Primary Care Provider] - Follow up in 3-5 days
[2018-11-12 00:19] VITALS: BP 106/63
--- NOTE | 2018-11-12 08:48 | EKG REPORT ---
SEVERITY:- NORMAL ECG - SINUS RHYTHM : Confirmed by: Sarita Byrnes MD 12-Nov-2018 08:47:32
== END 2018-11-12 00:27 | disposition home or self-care (01) ==
LOC: ER 20:45
DX: T78.2XXA Anaphylactic shock, unspecified, initial encounter (principal); R06.02 Shortness of breath; R42 Dizziness and giddiness; X58.XXXA Exposure to other specified factors, initial encounter; F17.210 Nicotine dependence, cigarettes, uncomplicated; I10 Essential (primary) hypertension; E11.9 Type 2 diabetes mellitus without complications; Z88.6 Allergy status to analgesic agent; Z90.49 Acquired absence of other specified parts of digestive tract
CPT/HCPCS: 93005; 99291; 96372; 96374; 96375; 36415; 82553; 82550; 83690; 85025; 85610; 85730; 80053; 81001; 84484; 71046; 93010; J1200; J0171; J2405; S0028; J1100

== ENCOUNTER 2019-05-17 20:34 | Emergency (ER) | payer MEDICARE, MEDICAID ==
[2019-05-17] MEDS ORDERED: TETRACAINE HCL 0.5% OPH SOLN 4 ML OD ONE (21:01)
--- NOTE | 2019-05-17 21:03 | ER Document Report ---
ED Medical Screen (RME) - General Chief Complaint: Eye Injury Stated Complaint: EYE INJURY Time Seen by Provider: 05/17/19 21:00 Primary Care Provider: KIRSTIN ATKINSON NP [Primary Care Provider] - Follow up as needed Mode of Arrival: Carried Information source: Patient Notes: 48-year-old male patient presented to the emergency department chief complaint of possible corneal abrasion to his left eye. Patient reports he was playing with his 2-year-old when his 2-year-old scratched him in the eyeball. He does not wear contact lenses. This occurred approximately 2 hours prior to arrival. He is reporting blurred vision and pain in the eyeball. Erythema noted to the conjunctiva, no obvious corneal abrasion noted on exam. I have greeted and performed a rapid initial assessment of this patient. A comprehensive ED assessment and evaluation of the patient, analysis of test results and completion of the medical decision making process will be conducted by additional ED providers. I have specifically instructed the patient or family members with the patient to immediately return to any nursing staff should anything change in the patient's condition or with their chief complaint. TRAVEL OUTSIDE OF THE [place] IN LAST 30 DAYS: No - Related Data Allergies/Adverse Reactions: morphine Adverse Reaction (Verified 01/13/18 09:21) Tachycardia Past Medical History - Past Medical History Cardiac Medical History: Reports: Hx Hypertension - NO MEDS Denies: Hx Coronary Artery Disease, Hx Heart Attack Pulmonary Medical History: Denies: Hx Asthma, Hx Bronchitis, Hx COPD, Hx Pneumonia Neurological Medical History: Denies: Hx Cerebrovascular Accident, Hx Seizures Endocrine Medical History: Reports: Hx Diabetes Mellitus Type 2 Renal/ Medical History: Denies: Hx Peritoneal Dialysis Musculoskeltal Medical History: Reports Hx Arthritis - BRUSITIS OF RIGHT HIP Past Surgical History: Reports: Other - Back surgery (disc replacement) - Immunizations Hx Diphtheria, Pertussis, Tetanus Vaccination: Yes Doctor's Discharge - Discharge Referrals: KIRSTIN ATKINSON NP [Primary Care Provider] - Follow up as needed
[2019-05-17] MEDS ORDERED: TETRACAINE HCL 0.5% OPH SOLN 4 ML ONE (22:02)
[2019-05-17] MEDS ORDERED: ERYTHROMYCIN 0.5% OPH OINTMENT 3.5 GM (ER DISP) OD PRN (22:23)
--- NOTE | 2019-05-17 22:24 | ER Document Report ---
HPI - HPI Time Seen by Provider: 05/17/19 21:00 Pain Level: 2 Notes: Patient is a 48-year-old male no significant past medical history who presents complaining of left eye irritation and possible scratch by baby prior to arrival. He does not wear contact lenses. He does have irritation to his eye. Pain does not radiate. No recent illness. Denies any headache, fever, neck pain, changes in speech/mentation/hearing, URI, sore throat, chest pain, palpitations, syncope, cough, shortness of breath, wheeze, dyspnea, abdominal pain, nausea/vomiting/diarrhea, urinary retention, dysuria, hematuria, or rash. - ROS Systems Reviewed and Negative: Yes All other systems reviewed and negative - EENT EENT: REPORTS: Eye problems - REPRODUCTIVE Reproductive: DENIES: : Past Medical History - General Information source: Patient - Social History Smoking Status: Never Smoker Family History: Reviewed & Not Pertinent Patient has suicidal ideation: No Patient has homicidal ideation: No - Past Medical History Cardiac Medical History: Reports: Hx Hypertension - NO MEDS Denies: Hx Coronary Artery Disease, Hx Heart Attack Pulmonary Medical History: Denies: Hx Asthma, Hx Bronchitis, Hx COPD, Hx Pneumonia Neurological Medical History: Denies: Hx Cerebrovascular Accident, Hx Seizures Endocrine Medical History: Reports: Hx Diabetes Mellitus Type 2 Renal/ Medical History: Denies: Hx Peritoneal Dialysis Musculoskeletal Medical History: Reports Hx Arthritis - BRUSITIS OF RIGHT HIP Past Surgical History: Reports: Other - Back surgery (disc replacement) - Immunizations Hx Diphtheria, Pertussis, Tetanus Vaccination: Yes Vertical Provider Document - CONSTITUTIONAL Agree With Documented VS: Yes Notes: PHYSICAL EXAMINATION: GENERAL: Well-appearing, well-nourished and in no acute distress. A&Ox4 HEAD: Atraumatic, normocephalic. EYES: Pupils equal round and reactive to light, extraocular movements intact, sclera anicteric, conjunctiva left shows very mild episcleritis b/l w/o discharge or matting. Non-tender to palp of the globe and eye itself. No surrounding erythema or swelling noted. Wood's lamp/flourescein: + fairly large corneal abrasion lateral left eye. No laceration, ulceration, or jose l sign noted. No obvious foreign body appreciated. ENT: EAC clear b/l. TM's intact b/l without erythema, fluid, or perforation. Nares patent and without discharge. oropharynx clear without exudates. No tonsilar hypertrophy or erythema. Moist mucous membranes. No sinus tenderness. Uvula midline. No palatine shift. No airway compromise. No drooling or hoarseness. NECK: Normal range of motion, supple without lymphadenopathy. No rigidity/meningismus. LUNGS: Breath sounds clear to auscultation bilaterally and equal. No wheezes rales or rhonchi. HEART: Regular rate and rhythm without murmurs, rubs, gallops. NEUROLOGICAL: Cranial nerves grossly intact. Normal speech, normal gait. PSYCH: Normal mood, normal affect. SKIN: Warm, Dry, normal turgor, no rashes or lesions noted. - INFECTION CONTROL TRAVEL OUTSIDE OF THE [place] IN LAST 30 DAYS: No Course - Re-evaluation Re-evalutation: 05/17/19 22:22 Patient is an afebrile, well-hydrated, 48-year-old male who presents to the emergency department with a corneal abrasion to the left eye. Vitals are acceptable without significant tachycardia, tachypnea, or hypoxia. PE is otherwise unremarkable. Patient is nontoxic-appearing and is able to tolerate p.o. without difficulty. No labs or imaging warranted. Low suspicion for any retained corneal or lid foreign body, deep space infection including orbital cellulitis/abscess, acute glaucoma, penetrating globe injury, retinal detachment, meningitis, sepsis, fracture, compartment syndrome. I will send jerardo e with a prescription for erythromycin ointment to use as directed. Conservative measures otherwise for symptoms with proper handwashing. Recheck with your PCM in 3-5 days. Consider follow-up with ophthalmology. Return to the ED with any worsening/concerning symptoms otherwise as reviewed in discharge. Patient is in agreement. Procedures - Eye Procedure Left Eye Irrigated w/ Saline (ccs): 20 Alcaine Drops Administered: Yes - tetracaine Fluorescein applied: Left Discharge - Discharge Clinical Impression: Corneal abrasion, left Qualifiers: Encounter type: initial encounter Qualified Code(s): S05.02XA - Injury of conjunctiva and corneal abrasion without foreign body, left eye, initial encounter Condition: Stable Disposition: HOME, SELF-CARE Instructions: Corneal Abrasion ([facility]) Additional Instructions: Keep eyes clean Avoid scratching/touching eyes Wash hands regularly Use eye drops as directed Maintain adequate fluid intake tylenol/ibuprofen as needed over the counter cold medication as needed for symptoms F/u: with your PCM in 3-5 days for a recheck Consider consult with Ophthalmology for ongoing/worsening symptoms Return to the ED with any worsening symptoms and/or development of fever, headache, changes in vision, eye pain, worsening eye redness, redness around the eyes, purulent discharge, sore throat, facial swelling, neck pain/stiffness, chest pain, palpitations, syncope, shortness of breath, trouble breathing, a bdominal pain, n/v/d, blood in stool/urine, dysuria, or other worsening symptoms that are concerning to you. Referrals: KIRSTIN ATKINSON NP [Primary Care Provider] - Follow up as needed MORENITA SQUIRES MD [ACTIVE STAFF] - Follow up as needed
[2019-05-17 22:38] VITALS: BP 138/88
== END 2019-05-17 22:38 | disposition home or self-care (01) ==
LOC: ER 20:34
DX: S05.02XA Injury of conjunctiva and corneal abrasion without foreign body, left eye, initial encounter (principal); W50.4XXA Accidental scratch by another person, initial encounter; E11.9 Type 2 diabetes mellitus without complications
CPT/HCPCS: 99283; A9270; J3490